=== PATIENT | female | born 1985 ===

== ENCOUNTER 2017-04-08 11:07 | Emergency (ER) | payer BC ==
[2017-04-08 12:07] VITALS: BP 114/78
--- NOTE | 2017-04-08 13:04 | UC ---
Upper Extremity HPI - HPI Summary HPI Summary: Per mineral surveyor: "Couple weeks ago pt thinks she pulled muscle in RIGHT shoulder. States she noticed pain in RIGHT shoulder the day after she did some house painting- denies any pain/injury while painting. States last couple days pain has gotten worse and radiating down RIGHT arm. States pain worse when she has to sit down to use toilet, but not when sitting down regularly. Some pain w/ shoulder movement. Tried ice/hot, patches, bengay and tylenol/ibuprofen 800mg s prn w/ no pain relief. " -right hand dominant. no injury known. no repetitive use of right arm over lifetime in sports or work. -no numbing/tingling into fingers. there is radiation into rt deltoid. -denies chance of (mirena) -pain is describes as in entire shoulder -states that she has nml ROM - History of Current Complaint Chief Complaint: UCUpperExtremity Stated Complaint: RIGHT SHOULDER PAIN Time Seen by Provider: 04/08/17 12:53 Hx Last Menstrual Period: IUD - Allergies/Home Medications Allergies/Adverse Reactions: Allergies Allergy/AdvReac Type Severity Reaction Status Date / Time No Known Allergies Allergy Verified 04/08/17 11:59 PMH/Surg Hx/FS Hx/Imm Hx Previously Healthy: Yes - Surgical History Surgical History: None - Family History Known Family History: Positive: Hypertension - Social History Alcohol Use: None Substance Use Type: None Smoking Status (MU): Heavy Every Day Tobacco Smoker Type: Cigarettes Amount Used/How Often: 1/2 ppd Length of Time of Smoking/Using Tobacco: 15 YRS Household Exposure Type: Cigarettes - Immunization History Most Recent Influenza Vaccination: no 2016 Review of Systems Constitutional: Negative Skin: Negative Eyes: Negative ENT: Negative Respiratory: Negative Cardiovascular: Negative Gastrointestinal: Negative Genitourinary: Negative Motor: Negative Neurovascular: Negative Musculoskeletal: Arthralgia Neurological: Negative Psychological: Negative Is Patient Immunocompromised?: No All Other Systems Reviewed And Are Negative: Yes Physical Exam Triage Information Reviewed: Yes Appearance: Well-Appearing, No Pain Distress, Well-Nourished Vital Signs: Initial Vital Signs Temp 98.4 F 04/08/17 11:59 Pulse 98 04/08/17 11:59 Resp 16 04/08/17 11:59 BP 114/78 04/08/17 11:59 Pulse Ox 100 04/08/17 11:59 Respiratory: Positive: Lungs clear, Normal breath sounds Cardiovascular: Positive: RRR, No Murmur, Pulses Normal Musculoskeletal: Positive: Strength Intact, ROM Intact - Full PROM in flexion, abduction, internal and external rotation (some pain with extreme internal rotation). + empty can test. + 2 B/TR/BR b/l. strength intact. + 2 radial pulse. sensation intact. CR brisk. shoulder tender over deltoid mostly. Neurological Exam: Normal Psychological Exam: Normal Upper Extremity Course/Dx - Course Course Of Treatment: Rt shoulder xray - neg. confirmed by radiologist. - Differential Dx/Diagnosis Differential Diagnosis/HQI/PQRI: Arthritis, Bursitis, Strain, Sprain Provider Diagnoses: Rotator cuff tendonitis Discharge - Discharge Plan Condition: Stable Disposition: HOME Prescriptions: Meloxicam [Mobic] 15 mg PO DAILY PRN #30 tab PRN Reason: Pain Patient Education Materials: Rotator Cuff Tendinitis (ED) Referrals: No Primary Care Phys,NOPCP [Primary Care Provider] - Juan R Arevalo MD [Medical Doctor] - 2 Days Additional Instructions: Do not take ibuprofen, aleve advil, motrin or any other medications in this class while you are on meloxicam. you should stop it immediately with any GI upset or signs of dark/black stools.
--- NOTE | 2017-04-08 13:34 | RAD ---
INDICATION: Right shoulder pain. TECHNIQUE: 4 views of the right shoulder were obtained. FINDINGS: The bones are in normal alignment. No fracture is seen. Joint spaces appear maintained. IMPRESSION: NEGATIVE EXAM.
== END 2017-04-08 13:54 | disposition home or self-care (01) ==
LOC: UCCORT 11:07
DX: Z72.0 Tobacco use (principal); M75.101 Unspecified rotator cuff tear or rupture of right shoulder, not specified as traumatic; X50.3XXA Overexertion from repetitive movements, initial encounter; Y93.89 Activity, other specified; Y92.9 Unspecified place or not applicable
CPT/HCPCS: 99212; G0463